=== PATIENT | female | born 1975 | race Caucasian/White ===

== ENCOUNTER 2018-12-30 01:12 | Inpatient (IN) ==
[2018-12-30] MEDS ORDERED: *HR* HYDROmorphone (PF) 1 MG/ML SYRINGE IVP ONE (03:33)
[2018-12-30] MEDS ORDERED: 0.9 % Sodium Chloride 1,000 ML IVC SCH ×2 (03:45→18:54)
[2018-12-30] MEDS: Ondansetron 4 MG/2 ML VIAL IVP PRN ×3 (03:59→20:43)
[2018-12-30] MEDS ORDERED: Ketorolac 15 MG/ML VIAL IVP PRN (04:30)
[2018-12-30 06:00] LABS: Basophils % 0.4 %; Eosinophils # 0.1 K/mcL (0.0-0.6); Eosinophils % 0.9 %; Hematocrit 43.5 % (35.3-44.9); Hemoglobin 14.4 g/dL (11.5-15.4); Immature Granulocytes % 0.2 % (0-4); Lymphocytes # 4.4 K/mcL (0.6-4.6); Lymphocytes % 44.5 %; Mean Corpuscular HGB Conc 33.1 g/dL (31.6-35.5); Mean Corpuscular Hemoglobin 30.4 pg (28.0-33.3); Mean Corpuscular Volume 91.8 fL (83.0-100.0); Monocytes # 0.7 K/mcL (0.0-1.3); Monocytes % 7.2 %; Neutrophils # 4.6 K/mcL (1.6-8.9); Platelet Count 243 K/mcL (140-400); Red Blood Count 4.74 M/mcL (3.82-4.97); Red Cell Distribution Width 13.1 % (11.5-14.5); Segmented Neutrophils % 46.8 %; White Blood Count 9.8 K/mcL (4.3-11.1)
[2018-12-30 06:16] LABS: BUN/Creatinine Ratio 24 (6-26); Blood Urea Nitrogen 13 mg/dL (6-20); Calcium 9.4 mg/dL (8.6-10.3); Carbon Dioxide 30 mEq/L (23-29); Chloride 107 mEq/L (98-107); Glucose 98 mg/dL (70-105); Osmolality,Calculated 292 (280-300); Sodium 141 mEq/L (136-145); eGFR For African Americans > 60 (> 60); eGFR For Non-African Americans > 60 (> 60)
[2018-12-30] MEDS ORDERED: Acetaminophen 325 MG TABLET PO ONE (07:52)
[2018-12-30] MEDS ORDERED: ALPRAZolam 0.25 MG TABLET PO PRN ×2 (07:57→18:54)
--- NOTE | 2018-12-30 08:21 | Acute Care Surgery H&P ---
<Jennifer Motley P - Last Filed: 12/30/18 10:19> Date of Encounter: 12/30/18 Time of Encounter: 08:00 Assessment and Plan (1) Intussusception of intestine Current Visit: No Status: Acute * This patient was presented with severe abdominal pain since yesterday, but she has had on and off pain for last couple of weeks,Pain is localized especially right lower quadrant,The patient does not have bowel movement for last 3 days and she has been constipated.The patient has nausea, minimal abdominal distention, does not have bowel movement but has passed gas, but no vomiting * CT abdomen and pelvis showed:Ileocecal intussusception measuring 5 cm in length. No lead point mass identified , No bowel obstruction. * Lab are with in normal range ( White cell count 9.8, hemoglobin 14.4, hematocrit 43.5, sodium 141, potassium 4.0, BUN 13, creatinine 0.5) Plan : * The assessment and plan as outlined above was discussed with the patient and/or family members who expressed understanding and agreement. All questions were answered. * Nothing by mouth from her latest morning * : Planned surgery later today: Ileocecectomy * Consent obtained History of Present Illness Chief complaint: Pain abdomen HPI: Ms. Reed is a 43 year old female presented to [facility] chief complain for severe abdominal pain. She stated that she has had pain abdomen on and off for last 3-4 weeks, but she suddenly developed sharp severe abdominal pain since yesterday. The pain was localized to the right lower quadrant of abdomen, 78/10 in intensity,excruciating in nature, associated with nausea but no vomiting. She also admitted slight abdominal distention and constipation. She further stated that she does not have any bowel movement for last 3 days and she is taking magnesium to help with constipation, but she has been passing gas frequently. She did not have any bowel surgery except hysterectomy in the past. She denied any fever,abdominal trauma, rash,complete loss of consciousness, vomiting, blood in stool or vomit . The patient does not have any significant systemic problem including heart problem, but she does admit mild shortness of breath and headache. CT abdomen and pelvis showed Ileocecal intussusception measuring 5 cm in length. No bowel obstruction. We have put her on nothing by mouth from this morning and planning to do surgery( ileocecectomy) later today. Past Med Surg Social Fam HX - Past Medical History Medical history: no medical history Additional medical history: states last seizure was 4 months ago Psychiatric history: anxiety, depression - Past Surgical History Surgical History: non-contributory, hysterectomy Additional surgical history: tubal ligation. Partial hysterectomy - Social History Smoking Status: Current every day smoker Packs per day: 1 1/2 Smokeless Tobacco Status: No Alcohol use: rarely Drug use: none - Family History Father Hx Family Cardiac Disorders: Yes (CHF) Hx Family Endocrine Disorder: Yes (Dm) Medications and Allergies ALPRAZolam [Xanax 0.25 MG Tablet] 0.5 mg PO BID PRN 08/21/18 [History] Albuterol Sulfate [Albuterol Inhaler] 0 puff IH Q4HR 08/21/18 [History] Magnesium Oxide [Magnesium] 400 mg PO BID 08/21/18 [History] Montelukast [Singulair] 10 mg PO DAILY #30 tablet 08/21/18 [Rx] MiraLAX 12/30/18 [History] Allergy/AdvReac Type Severity Reaction Status Date / Time hydromorphone [From Dilaudid] Allergy Itching Verified 12/30/18 04:34 oxycodone [Oxycodone] Allergy Hives Verified 08/21/18 14:14 Review of Systems All systems PM: The remainder of the systems were reviewed and are negative - Constitutional headache(s), weakness, no anorexia, no chills, no fever(s), no lethargy, no malaise, no night sweats - EENT Nose, mouth and throat: dry mouth, no dizziness, no sinus pain, no sore throat - Cardiovascular no chest pain, no chest pain at rest, no chest pain with activity, no leg edema, no lightheadedness, no orthopnea, no palpitations - Integumentary change in nails, no bleeding lesions - Neurological headache(s), no confusion, no convulsions, no dizziness, no restless legs, no syncope - Psychiatric anxiety, no confusion, no depression - Endocrine no deeping of the voice, no excessive sweating, no palpitations, no polydipsia - Allergic/Immunologic no tongue swelling, no itchy eyes, no uticaria, no wheezing, no lip swelling General Surgery Exam Initial Vital Signs Temp Pulse Resp BP Pulse Ox 98.6 F 86 16 141/82 95 12/30/18 02:52 12/30/18 02:52 12/30/18 02:52 12/30/18 02:52 12/30/18 02:52 - General physical appearance well developed, well nourished, no distress - Eyes PERRL, normal ocular movement - ENT normal nares, normal mucosa, no hearing loss, no congestion - Respiratory normal expansion, normal respiratory effort, clear to percussion, clear to auscultation - Cardiovascular Cardiovascular exam: Present: RRR, regular rhythm, no murmurs/rubs/gallops - Abdomen Abdomen general surgery: Present: bowel sounds present, soft, distended, tender. Absent: organomegaly, masses, guarding, rebound, rigid, peritoneal Abdominal Tenderness: Present: RLQ Hernia: Present: none - Integumentary Integumentary general surgery: Present: warm and dry - Neurologic Present: CN 2-12 grossly intact, normal coordination, normal sensation - Musculoskeletal Present: normal gait, normal posture - Psychiatric Psychiatric general surgery: Present: A&Ox3, appropriate, oriented to person, oriented to place, oriented to time, speech is normal, memory intact Results - Labs 12/30/18 05:37 12/30/18 05:37 Abnormal lab results Carbon Dioxide 30 mEq/L (23-29) H 12/30/18 05:37 0.55 mg/dL (0.60-1.20) L 12/30/18 05:37 Diabetes panel 12/30/18 Range/Units 05:37 Sodium 141 (136-145) mEq/L Potassium 4.0 (3.5-5.1) mEq/L Chloride 107 (98-107) mEq/L Carbon Dioxide 30 H (23-29) mEq/L BUN 13 (6-20) mg/dL Creatinine 0.55 L (0.60-1.20) mg/dL Glucose 98 (70-105) mg/dL Calcium 9.4 (8.6-10.3) mg/dL Calcium panel 12/30/18 Range/Units 05:37 Calcium 9.4 (8.6-10.3) mg/dL Pituitary panel 12/30/18 Range/Units 05:37 Sodium 141 (136-145) mEq/L Potassium 4.0 (3.5-5.1) mEq/L Chloride 107 (98-107) mEq/L Carbon Dioxide 30 H (23-29) mEq/L BUN 13 (6-20) mg/dL Creatinine 0.55 L (0.60-1.20) mg/dL Glucose 98 (70-105) mg/dL Calcium 9.4 (8.6-10.3) mg/dL Adrenal panel 12/30/18 Range/Units 05:37 Sodium 141 (136-145) mEq/L Potassium 4.0 (3.5-5.1) mEq/L Chloride 107 (98-107) mEq/L Carbon Dioxide 30 H (23-29) mEq/L BUN 13 (6-20) mg/dL Creatinine 0.55 L (0.60-1.20) mg/dL Glucose 98 (70-105) mg/dL Calcium 9.4 (8.6-10.3) mg/dL All other labs normal. - Imaging CT scan - abdomen: report reviewed <Duane Navarro - Last Filed: 12/30/18 13:41> Date of Encounter: 12/30/18 History of Present Illness HPI: Ms. Reed is a 43 year old female Review of Systems All systems PM: The remainder of the systems were reviewed and are negative General Surgery Exam Initial Vital Signs Temp Pulse Resp BP Pulse Ox 98.6 F 86 16 141/82 95 12/30/18 02:52 12/30/18 02:52 12/30/18 02:52 12/30/18 02:52 12/30/18 02:52 Results - Labs 12/30/18 05:37 12/30/18 05:37 Abnormal lab results Carbon Dioxide 30 mEq/L (23-29) H 12/30/18 05:37 0.55 mg/dL (0.60-1.20) L 12/30/18 05:37 Diabetes panel 12/30/18 Range/Units 05:37 Sodium 141 (136-145) mEq/L Potassium 4.0 (3.5-5.1) mEq/L Chloride 107 (98-107) mEq/L Carbon Dioxide 30 H (23-29) mEq/L BUN 13 (6-20) mg/dL Creatinine 0.55 L (0.60-1.20) mg/dL Glucose 98 (70-105) mg/dL Calcium 9.4 (8.6-10.3) mg/dL Calcium panel 12/30/18 Range/Units 05:37 Calcium 9.4 (8.6-10.3) mg/dL Pituitary panel 12/30/18 Range/Units 05:37 Sodium 141 (136-145) mEq/L Potassium 4.0 (3.5-5.1) mEq/L Chloride 107 (98-107) mEq/L Carbon Dioxide 30 H (23-29) mEq/L BUN 13 (6-20) mg/dL Creatinine 0.55 L (0.60-1.20) mg/dL Glucose 98 (70-105) mg/dL Calcium 9.4 (8.6-10.3) mg/dL Adrenal panel 12/30/18 Range/Units 05:37 Sodium 141 (136-145) mEq/L Potassium 4.0 (3.5-5.1) mEq/L Chloride 107 (98-107) mEq/L Carbon Dioxide 30 H (23-29) mEq/L BUN 13 (6-20) mg/dL Creatinine 0.55 L (0.60-1.20) mg/dL Glucose 98 (70-105) mg/dL Calcium 9.4 (8.6-10.3) mg/dL All other labs normal. - Attending Attestation I examined this patient and my medical decision-making was reviewed with the Resident Physician. I agree with the documented findings, disposition and treatment plan as described except to the extent set forth below. The patient is seen and evaluated on morning rounds. She is had recurrent right lower quadrant pain as well as constipation issues for some time. Today she complains bitterly of right lower quadrant pain and has a physical examination suggestive of inflammatory process in the right lower quadrant. CAT scan demonstrates a 5 cm intussusception with surrounding inflammatory fluid. I have recommended excisional therapy with segmental resection of the intussusception and primary anastomosis. I discussed the risks and benefits of surgery with her she understands this and wishes to proceed. Next I personally reviewed the CAT scan and findings are consistent with distal small bowel intussusception and physical examination correlates well with CAT scan findings. Duane Navarro MD FACS
[2018-12-30 08:56] LABS: Prothrombin Time 11.4 Seconds (9.4-12.1)
[2018-12-30] MEDS ORDERED: cefOXitin 1,000 MG, Sodium Chloride IRRigation 1,000 ML IR ONE ×2 (09:00→18:54)
[2018-12-30] MEDS ORDERED: Pantoprazole 40 MG VIAL IVP SCH (09:00)
[2018-12-30] MEDS ORDERED: *HR* FentaNYL (PF) 100 MCG/2 ML VIAL ONE (15:51)
[2018-12-30] MEDS ORDERED: *HR* Propofol 200 MG/20 ML VIAL IVP ONE (15:51)
[2018-12-30] MEDS ORDERED: *HR* Midazolam HCl 2 MG/2 ML VIAL ONE (15:51)
[2018-12-30] MEDS ORDERED: CefOXitin 1,000 MG VIAL ONE (15:52)
[2018-12-30] MEDS ORDERED: Ipratropium/Albuterol Neb 3 ML IH ONE (15:52)
--- NOTE | 2018-12-30 15:52 | Anesthesia Evaluation PreOp ---
Date of Encounter: 12/30/18 Time of Encounter: 15:49 - Past History Planned Operation: Ileocecectomy re: intestinal intussusception Pulmonary History: Smoker (1-1/2ppd x 25yrs) [employer] History: Seizures (Last a couple weeks ago. NOT medicated b/c "I don't have them very often"), Other (Anxiety/Depression) Other Medical History: Renal (Medullary sponge kidney) Anesthesia History: No Prior Anesthetic Complications, Past Anesthesia (Tubal, Partial Hyster) Alcohol Use: rarely Drug use: none Medications and Allergies ALPRAZolam [Xanax 0.25 MG Tablet] 0.5 mg PO BID PRN 08/21/18 [History] Albuterol Sulfate [Albuterol Inhaler] 0 puff IH Q4HR 08/21/18 [History] Magnesium Oxide [Magnesium] 400 mg PO BID 08/21/18 [History] Montelukast [Singulair] 10 mg PO DAILY #30 tablet 08/21/18 [Rx] MiraLAX 12/30/18 [History] Allergy/AdvReac Type Severity Reaction Status Date / Time hydromorphone [From Dilaudid] Allergy Itching Verified 12/30/18 04:34 oxycodone [Oxycodone] Allergy Hives Verified 08/21/18 14:14 - Meds/Allergy Pre-op Review Medications Reviewed: Yes Allergies Reviewed: Yes (CAN take Dilaudid, but needs Benadryl with it) Beta Blockers on Current Med List: Yes Anesthesia Results - Labs 12/30/18 05:37 12/30/18 05:37 Laboratory Results Laboratory Tests 12/30/18 12/30/18 05:37 08:22 PT 11.4 INR 1.0 Est GFR (Non-Af Amer) > 60 - Imaging Additional studies: CT/CT abd pelvis wo no iv no oral IMPRESSION: Ileocecal intussusception measuring 5 cm in length. No lead point mass identified on this noncontrast exam. No bowel obstruction. Normal appendix. D/ / Simon Rodriguez / Simon Rodriguez Interpreting Provider: Simon Rodriguez Anesthesia Exam Vital Signs Temp Pulse Resp BP Pulse Ox 12/30/18 10:52 98.3 F 70 14 120/77 92 12/30/18 07:03 98.3 F 65 15 106/68 92 12/30/18 03:38 95 12/30/18 02:52 98.6 F 86 16 141/82 95 Intake and Output 12/30/18 12/30/18 12/30/18 07:59 15:59 23:59 Output Total 100 / 100 Balance -100 / -100 Output: Emesis 100 / 100 Other: # Voids 1 1 Weight 55.7 kg Patient Weight 12/30/18 23:59 Weight 55.7 kg Height: 5'7" Weight: 122# BMI= 19 NPO (# of Hours): MNoc - HEENT Pupil (Motor): Pupils equal, EOMI Mallampati: II Teeth: Edentulous Oral Opening: Greater than 3 - [employer] LOC: Oriented [employer] Motor: Normal RUE, Normal LUE, Normal RLE, Normal LLE, Normal Face [employer] Sensory: Normal: RUE, LUE, RLE, LLE, Face - Cardiac Rhythm: Regular Murmur: None - Pulmonary Breath Sounds: bilateral Clear Respiratory Effort: Symmetrical Anesthesia Assess/Plan ASA Score: 3 Level of consciousness: Cooperative, Oriented Anesthetic Plan: General Regional Nerve Block Plan: Interscalene, Axillary Monitoring Plan: Standard Monitors Recovery Plan: PACU Anes Supervising Prov Stmt: Pt seen/evluated, R&B discussed, questions answered and consent obtained. Dennise Kwan MD
[2018-12-30] MEDS ORDERED: Lidocaine -MPF 2% 2 ML VIAL ONE (15:53)
[2018-12-30] MEDS ORDERED: Ondansetron 4 MG/2 ML VIAL ONE (15:53)
[2018-12-30] MEDS ORDERED: *HR* Succinylcholine 200 MG/10 ML VIAL IVP ONE (15:53)
[2018-12-30] MEDS ORDERED: *HR* Rocuronium Bromide 50 MG/5 ML VIAL ONE (15:53)
[2018-12-30] MEDS ORDERED: Dexamethasone 4 MG/ML VIAL ONE (15:53)
[2018-12-30] MEDS ORDERED: Ipratropium/Albuterol Neb 3 ML ONE (15:54)
[2018-12-30] MEDS ORDERED: Acetaminophen IV 1,000 MG/100 ML INFUS..BTL ONE (16:11)
[2018-12-30] MEDS ORDERED: Famotidine 20 MG/2 ML VIAL ONE (16:11)
[2018-12-30] MEDS ORDERED: CefOXitin 2,000 MG VIAL ONE (16:58)
[2018-12-30] MEDS ORDERED: Neostigmine Methylsulfate 3 MG/3 ML SYRINGE ONE (17:05)
[2018-12-30] MEDS ORDERED: Ketorolac 30 MG/ML VIAL ONE (17:32)
--- NOTE | 2018-12-30 17:45 | Operative Note ---
Date of procedure: 12/30/18 Pre-op diagnosis: Intussusception, ileocecal Post-op diagnosis: same Procedure: Ileocecal colectomy (resection of the distal small bowel, cecum and appendix with primary anastomosis) Anesthesia: EDDI Surgeon: Duane Navarro Was there an assistant customer service manager present: Yes Advertising Assistant Manager: Michelle Galvin Estimated blood loss (cc): 10 Specimen: Ileocecal colectomy Condition: stable Disposition: PACU Procedure in Detail: After informed consent the patients taking major operative suite placed supine position given adequate general anesthetic. The abdomen is prepped and draped in sterile fashion utilizing ChloraPrep and standard draping techniques. Timeout was taken and the patient is identified. I made a vertical midline incision just below the umbilicus and around the umbilicus and the colon was stool-filled. The intussusception in the ileocecal valve area had reduced. There was no area of dense adhesions down to her hysterectomy site from the distal ileum about 10-15 cm from the ileocecal valve. Once I lysed the adhesions in the pelvis and mobilize this area I was not happy with the appearance of the bowel and decided to resect this. I divided the ileum just proximal to the area of adhesions in the pelvis taking about 15-20 cm of distal ileum. I divided the mid descending colon just above the cecum. Both divisions were with FAIHT area mesentery was divided between clamps and hemostatic ligatures of 0 silk. I performed a functional end-to-end anastomosis with FAITH and closing the enterotomy with a TA 60. I circumferentially reinforced the staple line with interrupted 3-0 silk and closed the opening in the mesentery with interrupted 2-0 silk. This gave an excellent and well vascularized technical result with a widely patent anastomosis. The abdomen was irrigated with copious amounts of antibiotic containing solution. Midline was closed with looped 0 PDS. Skin was closed with interrupted 2-0 Vicryl's stitches and skin clips. She tolerated the procedure well.
[2018-12-30] MEDS ORDERED: *HR* FentaNYL (PF) 100 MCG/2 ML VIAL IVP PRN (17:49)
[2018-12-30] MEDS ORDERED: *HR* Morphine 2 MG/ML SYRINGE IVP PRN (17:49)
[2018-12-30] MEDS ORDERED: traMADol 50 MG TABLET PO PRN (17:52)
[2018-12-30] MEDS ORDERED: Ringers Solution, Lactated 1,000 ML ONE (17:57)
[2018-12-30] MEDS ORDERED: *HR* Promethazine 25 MG/ML VIAL ONE (17:57)
[2018-12-30] MEDS ORDERED: *HR* Heparin 5,000 UNIT/ML VIAL SQ SCH (18:00)
[2018-12-30] MEDS: *HR* Promethazine 25 MG/ML VIAL IVP PRN ×2 (18:00→18:24)
--- NOTE | 2018-12-30 18:34 | Anesthesia Evaluation Post Op ---
Date of Encounter: 12/30/18 Time of Encounter: 18:33 - Vital Signs Vital Signs: Last Vital Signs Temp 98.6 F 12/30/18 18:19 Pulse 57 12/30/18 18:19 Resp 14 12/30/18 18:19 BP 108/67 12/30/18 18:19 Pulse Ox 96 12/30/18 18:19 - Lungs Lungs: Clear Ascult./Percussion - Airway Airway: Non-obstructed - Cardiovascular Regular Rate - Mental Status Mental Status: Alert & Oriented, Answers Appropriately - Pain Pain Scale: 0 Pain Scale used: Swartz-Den (Faces) - Nausea Vomiting Nausea Vomiting: Not Present - Hydration Hydration: Ice chips - Discharge PostOp Status: Transfer Patient to floor
[2018-12-30] MEDS: Ketorolac 15 MG/ML VIAL IVP PRN (20:42)
[2018-12-30] MEDS: *HR* HYDROmorphone 2 MG/ML SYRINGE IVP PRN (23:50)
[2018-12-31] MEDS ORDERED: cefOXitin 1,000 MG in 0.9 % Sodium Chloride Mini Bag 100 ML IVPB SCH
[2018-12-31] MEDS: Ketorolac 15 MG/ML VIAL IVP PRN (04:52)
[2018-12-31 06:06] LABS: Basophils % 0.2 %; Hematocrit 39.7 % (35.3-44.9); Immature Granulocytes % 0.5 % (0-4); Lymphocytes # 1.2 K/mcL (0.6-4.6); Lymphocytes % 7.4 %; Mean Corpuscular HGB Conc 32.7 g/dL (31.6-35.5); Mean Corpuscular Hemoglobin 30.4 pg (28.0-33.3); Mean Platelet Volume 10.6 fL (9.4-12.4); Monocytes # 0.7 K/mcL (0.0-1.3); Monocytes % 4.4 %; Neutrophils # 13.6 K/mcL (1.6-8.9); Platelet Count 229 K/mcL (140-400); Red Blood Count 4.27 M/mcL (3.82-4.97); Segmented Neutrophils % 87.5 %
[2018-12-31 06:08] LABS: White Blood Count 15.5 K/mcL (4.3-11.1)
[2018-12-31 06:23] LABS: BUN/Creatinine Ratio 18 (6-26); Blood Urea Nitrogen 9 mg/dL (6-20); Calcium 8.5 mg/dL (8.6-10.3); Carbon Dioxide 28 mEq/L (23-29); Chloride 104 mEq/L (98-107); Glucose 107 mg/dL (70-105); Magnesium 1.5 mg/dL (1.6-2.6); Osmolality,Calculated 285 (280-300); Phosphorous 4.1 mg/dL (2.7-4.5); Potassium 3.9 mEq/L (3.5-5.1); Sodium 138 mEq/L (136-145); eGFR For African Americans > 60 (> 60); eGFR For Non-African Americans > 60 (> 60)
[2018-12-31] MEDS: Pantoprazole 40 MG VIAL IVP SCH (08:46)
--- NOTE | 2018-12-31 08:48 | AcuteCareSurgery Progress Note ---
<Jennifer Motley P - Last Filed: 12/31/18 13:31> Date of Encounter: 12/31/18 Time of Encounter: 08:30 - Assessment and Plan (1) Intussusception of intestine Current Visit: Yes Status: Acute * This patient was presented with severe abdominal pain , constipation, abdominal distension. * CT abdomen and pelvis showed:Ileocecal intussusception measuring 5 cm in length. No lead point mass identified , No bowel obstruction. * Today is 1st postoperative day : Ileocecal colectomy (resection of the distal small bowel, cecum and appendix with primary anastomosis 12/30/2018 * Patient is gradually getting better, pain is less, and no post op complication * Post OP labs : WBC 15.5, hemoglobin 13, sodium 138, potassium 3.9, renal function normal Plan : * Will gradually advance diet as she tolerated, start from ice chips * Activity as she tolerated * Monitor intake and output * Watch for wound site infection * Adequate pain management, * Trend labs Subjective Patient reports: no new complaints, feels better, still having pain, no bowel movement Narrative: Today is first postoperative day after Ileocecal colectomy (resection of the distal small bowel, cecum and appendix with primary anastomosis,) patient is progressively getting better, no new complaints. Pain is gradually getting less, she does not have any bowel movement yet, she denied vomiting. Her vitals are stable; she is afebrile pulse 76 per minute regular, blood pressure 101/63, saturation 94% room air. It has been just more than 12 hours after surgery and she is starting from ice chips and we will plan to gradually advance diet as she tolerated Objective Vital Signs - Last 8 Hours Temp Pulse Resp BP Pulse Ox 12/31/18 06:53 98.8 F 76 16 101/63 94 12/31/18 04:47 98.1 F 61 16 115/54 95 Intake and Output 12/30/18 12/31/18 12/31/18 23:59 07:59 15:59 Intake Total 1000 / 1000 Output Total 600 / 600 Balance 400 / 400 Intake: IV Fluids 1000 / 1000 0.9 % Sodium Chloride 1,000 ML 1000 / 1000 @ 100 mls/hr IVC .Q10H [facility] Rx#: [id number] Output: Urine 600 / 600 Other: # Bowel Movements 0 Blood Glucose* 107 - General physical appearance well developed, well nourished, no distress - Eyes PERRL, normal ocular movement - ENT normal nares, normal mucosa, no congestion - Neck Neck exam: no masses, no bruits, trachea midline, no lymphadectomy - Respiratory normal expansion, normal respiratory effort, clear to percussion - Cardiovascular Cardiovascular exam: Present: RRR, regular rhythm, no murmurs/rubs/gallops - Abdomen Abdomen: Present: soft, distended, tender. Absent: organomegaly, guarding, rigid, peritoneal - Incision Incision: Present: clean and dry, intact - Integumentary no rash - Neurologic CN 2-12 grossly intact, normal coordination, normal sensation - Musculoskeletal normal gait, normal posture - Psychiatric oriented to time, oriented to person, oriented to place, speech is normal - Labs 12/31/18 04:52 12/31/18 04:52 Diabetes panel 12/31/18 Range/Units 04:52 Sodium 138 (136-145) mEq/L Potassium 3.9 (3.5-5.1) mEq/L Chloride 104 (98-107) mEq/L Carbon Dioxide 28 (23-29) mEq/L BUN 9 (6-20) mg/dL Creatinine 0.49 L (0.60-1.20) mg/dL Glucose 107 H (70-105) mg/dL Calcium 8.5 L (8.6-10.3) mg/dL Calcium panel 12/31/18 Range/Units 04:52 Calcium 8.5 L (8.6-10.3) mg/dL Phosphorus 4.1 (2.7-4.5) mg/dL Pituitary panel 12/31/18 Range/Units 04:52 Sodium 138 (136-145) mEq/L Potassium 3.9 (3.5-5.1) mEq/L Chloride 104 (98-107) mEq/L Carbon Dioxide 28 (23-29) mEq/L BUN 9 (6-20) mg/dL Creatinine 0.49 L (0.60-1.20) mg/dL Glucose 107 H (70-105) mg/dL Calcium 8.5 L (8.6-10.3) mg/dL Adrenal panel 12/31/18 Range/Units 04:52 Sodium 138 (136-145) mEq/L Potassium 3.9 (3.5-5.1) mEq/L Chloride 104 (98-107) mEq/L Carbon Dioxide 28 (23-29) mEq/L BUN 9 (6-20) mg/dL Creatinine 0.49 L (0.60-1.20) mg/dL Glucose 107 H (70-105) mg/dL Calcium 8.5 L (8.6-10.3) mg/dL Consult Discharge Plan - Plan Referrals: Vivian Borrego, RN [facility] [Primary Care Provider] - <Richie Schwartz - Last Filed: 01/01/19 05:38> Date of Encounter: 12/31/18 Objective Vital Signs - Last 8 Hours Temp Pulse Resp BP Pulse Ox 01/01/19 03:24 98.5 F 87 16 119/61 96 12/31/18 22:46 98.8 F 75 16 109/65 95 Intake and Output 12/31/18 12/31/18 01/01/19 15:59 23:59 07:59 Intake Total 1000 / 2000 Output Total 0 / 600 Balance 0 / 1400 1000 / 1400 Intake: IV Fluids 1000 / 2000 0.9 % Sodium Chloride 1,000 ML 1000 / 1000 @ 100 mls/hr IVC .Q10H [facility] Rx#: [id number] Output: Urine 0 / 600 Other: Meal NPO for lunch # Voids 2 Weight 58.2 kg Blood Glucose* 89 90 82 Patient Weight 01/01/19 23:59 Weight 58.2 kg - Labs 01/01/19 00:28 01/01/19 00:28 Diabetes panel 12/31/18 01/01/19 Range/Units 04:52 00:28 Sodium 138 138 (136-145) mEq/L Potassium 3.9 3.4 L (3.5-5.1) mEq/L Chloride 104 105 (98-107) mEq/L Carbon Dioxide 28 27 (23-29) mEq/L BUN 9 9 (6-20) mg/dL Creatinine 0.49 L 0.48 L (0.60-1.20) mg/dL Glucose 107 H 76 (70-105) mg/dL Calcium 8.5 L 8.2 L (8.6-10.3) mg/dL Calcium panel 12/31/18 01/01/19 Range/Units 04:52 00:28 Calcium 8.5 L 8.2 L (8.6-10.3) mg/dL Phosphorus 4.1 2.3 L (2.7-4.5) mg/dL Pituitary panel 12/31/18 01/01/19 Range/Units 04:52 00:28 Sodium 138 138 (136-145) mEq/L Potassium 3.9 3.4 L (3.5-5.1) mEq/L Chloride 104 105 (98-107) mEq/L Carbon Dioxide 28 27 (23-29) mEq/L BUN 9 9 (6-20) mg/dL Creatinine 0.49 L 0.48 L (0.60-1.20) mg/dL Glucose 107 H 76 (70-105) mg/dL Calcium 8.5 L 8.2 L (8.6-10.3) mg/dL Adrenal panel 12/31/18 01/01/19 Range/Units 04:52 00:28 Sodium 138 138 (136-145) mEq/L Potassium 3.9 3.4 L (3.5-5.1) mEq/L Chloride 104 105 (98-107) mEq/L Carbon Dioxide 28 27 (23-29) mEq/L BUN 9 9 (6-20) mg/dL Creatinine 0.49 L 0.48 L (0.60-1.20) mg/dL Glucose 107 H 76 (70-105) mg/dL Calcium 8.5 L 8.2 L (8.6-10.3) mg/dL - Attending Attestation I examined this patient and my medical decision-making was reviewed with the Resident Physician. I agree with the documented findings, disposition and treatment plan as described except to the extent set forth below. I reviewed the above assessment and evaluation and agree with the above plan. Await for return of bowel function. Ice chips for now. Encourage out of bed and ambulation.
[2018-12-31] MEDS: *HR* HYDROmorphone 2 MG/ML SYRINGE IVP PRN ×4 (08:54→22:37)
[2018-12-31] MEDS: Ondansetron 4 MG/2 ML VIAL IVP PRN (08:54)
[2018-12-31] MEDS: 0.9 % Sodium Chloride 1,000 ML IVC SCH ×2 (11:18→21:38)
[2019-01-01] MEDS: Ketorolac 15 MG/ML VIAL IVP PRN ×4 (01:23→23:37)
[2019-01-01 01:50] LABS: Basophils % 0.2 %; Eosinophils % 0.3 %; Hematocrit 36.8 % (35.3-44.9); Hemoglobin 12.1 g/dL (11.5-15.4); Immature Granulocytes % 0.3 % (0-4); Lymphocytes % 25.5 %; Mean Corpuscular HGB Conc 32.9 g/dL (31.6-35.5); Mean Corpuscular Hemoglobin 30.6 pg (28.0-33.3); Mean Corpuscular Volume 93.2 fL (83.0-100.0); Mean Platelet Volume 10.5 fL (9.4-12.4); Monocytes # 0.7 K/mcL (0.0-1.3); Monocytes % 5.7 %; Neutrophils # 7.9 K/mcL (1.6-8.9); Platelet Count 219 K/mcL (140-400); Red Blood Count 3.95 M/mcL (3.82-4.97); Red Cell Distribution Width 13.2 % (11.5-14.5); White Blood Count 11.6 K/mcL (4.3-11.1)
[2019-01-01 02:35] LABS: BUN/Creatinine Ratio 19 (6-26); Blood Urea Nitrogen 9 mg/dL (6-20); Calcium 8.2 mg/dL (8.6-10.3); Carbon Dioxide 27 mEq/L (23-29); Chloride 105 mEq/L (98-107); Glucose 76 mg/dL (70-105); Magnesium 1.7 mg/dL (1.6-2.6); Osmolality,Calculated 283 (280-300); Phosphorous 2.3 mg/dL (2.7-4.5); Potassium 3.4 mEq/L (3.5-5.1); Sodium 138 mEq/L (136-145); eGFR For African Americans > 60 (> 60); eGFR For Non-African Americans > 60 (> 60)
[2019-01-01] MEDS: *HR* HYDROmorphone 2 MG/ML SYRINGE IVP PRN (04:43)
[2019-01-01] MEDS ORDERED: D5% in Water 1,000 ML IVC PRN (07:15)
[2019-01-01] MEDS ORDERED: Dextrose Gel 15 GM/37.5 ML TUBE PO PRN ×2 (07:15)
[2019-01-01] MEDS ORDERED: *HR* Dextrose 50 % in Water (Syg) 50 ML SYRINGE IVP PRN (07:15)
[2019-01-01] MEDS ORDERED: Fluticasone Propionate Nasal 50 MCG/SPRAY BOTTLE NS PRN (08:51)
[2019-01-01] MEDS ORDERED: NON-FORMULARY MEDICATION 1 EACH EACH (Glycopyrrolate/Formoterol Fum [Bevespi Aerosphere In IH SCH (09:00)
--- NOTE | 2019-01-01 09:13 | AcuteCareSurgery Progress Note ---
<BaMaye Fabian - Last Filed: 01/01/19 09:11> Date of Encounter: 01/01/19 Time of Encounter: 07:55 - Assessment and Plan (1) Intussusception of intestine Current Visit: Yes Status: Acute Date of procedure: 12/30/18 Pre-op diagnosis: Intussusception, ileocecal Post-op diagnosis: same Procedure: Ileocecal colectomy (resection of the distal small bowel, cecum and appendix with primary anastomosis) Anesthesia: ALISHAA Surgeon: Duane Navarro POD #2 as above. Pathology remains pending. Overall, she is recovering as expected. She does report cough and feeling fevered or chills. She does have a history of smoking. Plan: Continue supportive care and discomfort management while awaiting full return of bowel function Continue G.I. and DVT prophylaxis consult respiratory therapy for a cappella, scheduled duonebs in the setting of her smoking history and her normal medication is non-formulary, aggressive pulmonary toileting Incentive spirometry 10 times every hour while awake Out of bed to chair TID, do not offer meal trays while in the bed Activity as tolerated, ambulate in the halls at least TID Apply ice 20 minutes on 20 minutes off as needed scheduled Toradol, PRN sublingual oxycodone for breakthrough pain continue to closely monitor repeat a.m. labs (2) Smoking history Current Visit: Yes Status: Chronic Smoking cessation education aggressive pulmonary toileting Chest x-ray for productive cough Continue to closely monitor (3) Productive cough Current Visit: Yes Status: Acute See above (4) Depression Current Visit: No Status: Chronic Continue to monitor continue home medications Qualifiers: Depression Type: unspecified Qualified Code(s): F32.9 - Major depressive disorder, single episode, unspecified (5) History of seizures Current Visit: No Status: Chronic Continue to closely monitor (6) Electrolyte imbalance Current Visit: Yes Status: Acute Replete lytes as indicated K [place] given today Subjective Patient reports: no new complaints, feels better, still having pain, pain is less, tolerating liquids well, flatus, no bowel movement, fever (Feels fever and chills) Narrative: Reports urinary incontinence alternating with difficulty initiating stream of urine. Denies burning her blood. Objective Vital Signs - Last 8 Hours Temp Pulse Resp BP Pulse Ox 01/01/19 06:35 99.1 F 78 16 104/59 97 01/01/19 03:24 98.5 F 87 16 119/61 96 Intake and Output 12/31/18 01/01/19 01/01/19 23:59 07:59 15:59 Intake Total 999 / 1999 Balance 1000 / 1400 Intake: IV Fluids 999 / 1999 0.9 % Sodium Chloride 1,000 ML 1000 / 1000 @ 100 mls/hr IVC .Q10H [facility] Rx#: [id number] Other: # Voids 2 Weight 58.2 kg Blood Glucose* 90 82 Patient Weight 01/01/19 23:59 Weight 58.2 kg - General physical appearance no distress, other (Up in room) - ENT atraumatic, normocephalic - Neck Neck exam: trachea midline - Respiratory other (Decreased respiratory effort. Reports productive cough) - Cardiovascular Cardiovascular exam: Present: RRR - Abdomen Abdomen: Present: bowel sounds present, soft, tender (Expected postoperative) - Incision Incision: Present: clean and dry, intact - Integumentary no rash - Neurologic normal coordination, normal sensation - Musculoskeletal normal gait, normal posture - Psychiatric oriented to time, oriented to person, oriented to place, speech is normal, memory intact - Labs 01/01/19 00:28 01/01/19 00:28 Diabetes panel 01/01/19 Range/Units 00:28 Sodium 138 (136-145) mEq/L Potassium 3.4 L (3.5-5.1) mEq/L Chloride 105 (98-107) mEq/L Carbon Dioxide 27 (23-29) mEq/L BUN 9 (6-20) mg/dL Creatinine 0.48 L (0.60-1.20) mg/dL Glucose 76 (70-105) mg/dL Calcium 8.2 L (8.6-10.3) mg/dL Calcium panel 01/01/19 Range/Units 00:28 Calcium 8.2 L (8.6-10.3) mg/dL Phosphorus 2.3 L (2.7-4.5) mg/dL Pituitary panel 01/01/19 Range/Units 00:28 Sodium 138 (136-145) mEq/L Potassium 3.4 L (3.5-5.1) mEq/L Chloride 105 (98-107) mEq/L Carbon Dioxide 27 (23-29) mEq/L BUN 9 (6-20) mg/dL Creatinine 0.48 L (0.60-1.20) mg/dL Glucose 76 (70-105) mg/dL Calcium 8.2 L (8.6-10.3) mg/dL Adrenal panel 01/01/19 Range/Units 00:28 Sodium 138 (136-145) mEq/L Potassium 3.4 L (3.5-5.1) mEq/L Chloride 105 (98-107) mEq/L Carbon Dioxide 27 (23-29) mEq/L BUN 9 (6-20) mg/dL Creatinine 0.48 L (0.60-1.20) mg/dL Glucose 76 (70-105) mg/dL Calcium 8.2 L (8.6-10.3) mg/dL Consult Discharge Plan - Plan Referrals: Vivian Borrego CNP [Primary Care Provider] - <Duane Navarro - Last Filed: 01/01/19 18:08> Date of Encounter: 01/01/19 Objective Vital Signs - Last 8 Hours Temp Pulse Resp BP Pulse Ox 01/01/19 15:40 17 96 01/01/19 14:21 98.4 F 87 16 100/61 95 01/01/19 11:26 98.7 F 97 18 106/61 85 01/01/19 10:48 16 97 Intake and Output 01/01/19 01/01/19 01/01/19 07:59 15:59 23:59 Intake Total 1240 / 1240 Balance 1240 / 1240 Intake: IV Fluids 1000 / 1000 0.9 % Sodium Chloride 1,000 ML 1000 / 1000 @ 100 mls/hr IVC .Q10H [facility] Rx#: [id number] Oral 240 / 240 Other: Meal Lunch # Voids 2 Weight 58.2 kg Blood Glucose* 82 Patient Weight 01/01/19 23:59 Weight 58.2 kg - Labs 01/01/19 00:28 01/01/19 00:28 Diabetes panel 01/01/19 Range/Units 00:28 Sodium 138 (136-145) mEq/L Potassium 3.4 L (3.5-5.1) mEq/L Chloride 105 (98-107) mEq/L Carbon Dioxide 27 (23-29) mEq/L BUN 9 (6-20) mg/dL Creatinine 0.48 L (0.60-1.20) mg/dL Glucose 76 (70-105) mg/dL Calcium 8.2 L (8.6-10.3) mg/dL Calcium panel 01/01/19 Range/Units 00:28 Calcium 8.2 L (8.6-10.3) mg/dL Phosphorus 2.3 L (2.7-4.5) mg/dL Pituitary panel 01/01/19 Range/Units 00:28 Sodium 138 (136-145) mEq/L Potassium 3.4 L (3.5-5.1) mEq/L Chloride 105 (98-107) mEq/L Carbon Dioxide 27 (23-29) mEq/L BUN 9 (6-20) mg/dL Creatinine 0.48 L (0.60-1.20) mg/dL Glucose 76 (70-105) mg/dL Calcium 8.2 L (8.6-10.3) mg/dL Adrenal panel 01/01/19 Range/Units 00:28 Sodium 138 (136-145) mEq/L Potassium 3.4 L (3.5-5.1) mEq/L Chloride 105 (98-107) mEq/L Carbon Dioxide 27 (23-29) mEq/L BUN 9 (6-20) mg/dL Creatinine 0.48 L (0.60-1.20) mg/dL Glucose 76 (70-105) mg/dL Calcium 8.2 L (8.6-10.3) mg/dL - Attending Attestation I have personally performed a face to face evaluation on this patient. I have reviewed and agree with the care plan. History and Exam by me shows: The patient is seen and evaluated on morning rounds with the acute care surgery team. Her preoperative pain is gone. She had a great deal of difficulty with bowel movements prior to surgery. She has good bowel sounds today and we will advance her diet. She has some dysuria and this will be investigated with urin alysis. Duane Navarro MD FACS
[2019-01-01] MEDS ORDERED: Potassium Phosphate 44 MEQ in 0.9 % Sodium Chloride 250 ML IVPB ONE (09:20)
[2019-01-01] MEDS: Pantoprazole 40 MG VIAL IVP SCH (09:38)
[2019-01-01] MEDS: Ipratropium/Albuterol Neb 3 ML IH SCH ×3 (10:45→22:06)
[2019-01-01] MEDS: 0.9 % Sodium Chloride 1,000 ML IVC SCH (11:33)
[2019-01-01 12:04] LABS: Bilirubin,Urine Negative (Negative); Blood,Urine Small (Negative); Clarity,Urine Clear (Clear); Color,Urine Yellow (Yellow); Glucose,Urine (UA) Normal (Normal); Ketones,Urine 80 mg/dL (Negative); Leukocyte Esterase,Urine Negative (Negative); Nitrite,Urine Negative (Negative); Protein,Urine Negative (Neg-Trace); Specific Gravity,Urine 1.012 (1.010-1.025); Urobilinogen,Urine Normal (Normal)
[2019-01-01 12:06] LABS: Bacteria,Urine None Seen per hpf (None-Few); Hyaline Casts,Urine None Seen per lpf (None-Few); Squamous Epithelial Cell,Urine Many per lpf (None-Few)
[2019-01-01] MEDS: OXYCODONE Oral CONC 10 MG/0.5 ML ORAL.SYG SL PRN ×2 (15:53→19:16)
[2019-01-01] MEDS: Nitrofurantoin (BID) 100 MG CAPSULE PO SCH (15:53)
[2019-01-01] MEDS ORDERED: Ipratropium/Albuterol Neb 3 ML IH PRN (22:22)
[2019-01-02] MEDS: OXYCODONE Oral CONC 10 MG/0.5 ML ORAL.SYG SL PRN ×3 (04:52→20:59)
[2019-01-02 05:33] LABS: Basophils % 0.1 %; Eosinophils # 0.1 K/mcL (0.0-0.6); Hematocrit 33.9 % (35.3-44.9); Immature Granulocytes % 0.1 % (0-4); Lymphocytes # 1.7 K/mcL (0.6-4.6); Lymphocytes % 22.1 %; Mean Corpuscular HGB Conc 32.4 g/dL (31.6-35.5); Mean Corpuscular Hemoglobin 30.1 pg (28.0-33.3); Mean Corpuscular Volume 92.6 fL (83.0-100.0); Mean Platelet Volume 10.2 fL (9.4-12.4); Monocytes # 0.8 K/mcL (0.0-1.3); Monocytes % 9.5 %; Neutrophils # 5.3 K/mcL (1.6-8.9); Platelet Count 211 K/mcL (140-400); Red Blood Count 3.66 M/mcL (3.82-4.97); Segmented Neutrophils % 67.2 %; White Blood Count 7.9 K/mcL (4.3-11.1)
[2019-01-02 05:54] LABS: BUN/Creatinine Ratio 22 (6-26); Blood Urea Nitrogen 10 mg/dL (6-20); Calcium 8.5 mg/dL (8.6-10.3); Carbon Dioxide 29 mEq/L (23-29); Chloride 102 mEq/L (98-107); Glucose 94 mg/dL (70-105); Magnesium 1.7 mg/dL (1.6-2.6); Osmolality,Calculated 287 (280-300); Phosphorous 2.8 mg/dL (2.7-4.5); Potassium 3.1 mEq/L (3.5-5.1); Sodium 139 mEq/L (136-145); eGFR For African Americans > 60 (> 60); eGFR For Non-African Americans > 60 (> 60)
[2019-01-02] MEDS: Ketorolac 15 MG/ML VIAL IVP PRN (06:55)
--- NOTE | 2019-01-02 08:16 | AcuteCareSurgery Progress Note ---
<Jennifer Motley P - Last Filed: 01/02/19 14:49> Date of Encounter: 01/02/19 Time of Encounter: 08:00 - Assessment and Plan (1) Intussusception of intestine Current Visit: Yes Status: Acute * This patient was presented with severe abdominal pain , constipation, abdominal distension.The CT abdomen and pelvis showed:Ileocecal intussuscept ion measuring 5 cm in length, No bowel obstruction. * Today is 3rd postoperative day : Ileocecal colectomy (resection of the distal small bowel, cecum and appendix with primary anastomosis 12/30/2018 * Patient is gradually getting better, pain is less, and no post op complication * Post OP labs : WBC 7.9, hemoglobin 11, sodium 139, potassium 3.1, renal function normal Plan : * Will gradually advance diet as she tolerated, start Liquid diet. * Potassium supplement * Spirometry, pulmonary toileting * Activity as she tolerated * Monitor intake and output * Watch for wound site infection * Adequate pain management, * Trend labs Subjective Patient reports: no new complaints, pain is less, flatus, no bowel movement, afebrile Narrative: Today is 3rd postoperative day after Ileocecal colectomy (resection of the dis tammy small bowel, cecum and appendix with primary anastomosis,) patient is progressively getting better, no new complaints. Pain is gradually getting less belly pain, she passed gas , but she does not have any bowel movement yet, she denied vomiting. Her vitals are stable; she is afebrile pulse 88 per minute regular, blood pressure 104/65 saturation 93% room air. We are planning to gradually advance diet as she tolerates. Objective Vital Signs - Last 8 Hours Temp Pulse Resp BP Pulse Ox 01/02/19 07:02 99 F 88 16 104/65 93 01/02/19 03:15 98.4 F 78 16 118/71 95 Intake and Output 01/01/19 01/02/19 01/02/19 23:59 07:59 15:59 Intake Total 260 / 1500 0 / 0 Output Total 800 / 800 Balance 260 / 1500 -800 / -800 Intake: IV Fluids 260 / 1260 Potassium Phosphate 44 MEQ In 0 260 / 260 .9 % Sodium Chloride 250 ML @ 40 mls/hr IVPB ONCE ONE Rx#: [id number] Oral 0 / 0 Output: Urine 800 / 800 Other: # Voids 1 Weight 81.6 kg Patient Weight 01/02/19 23:59 Weight 81.6 kg - General physical appearance well nourished, no distress, moderate pain - Eyes PERRL, normal ocular movement - ENT normal nares, normal mucosa - Neck Neck exam: no bruits, trachea midline, no lymphadectomy - Respiratory normal expansion, normal respiratory effort, clear to percussion, clear to auscultation - Cardiovascular Cardiovascular exam: Present: RRR, regular rhythm, no murmurs/rubs/gallops - Abdomen Abdomen: Present: bowel sounds present, soft, distended, tender. Absent: guarding, rebound, rigid - Incision Incision: Present: clean and dry, intact - Integumentary no rash - Neurologic CN 2-12 grossly intact, normal coordination, normal sensation - Musculoskeletal normal gait - Psychiatric oriented to time, oriented to person, oriented to place, speech is normal, memory intact - Labs 01/02/19 05:00 01/02/19 05:00 Diabetes panel 01/02/19 Range/Units 05:00 Sodium 139 (136-145) mEq/L Potassium 3.1 L (3.5-5.1) mEq/L Chloride 102 (98-107) mEq/L Carbon Dioxide 29 (23-29) mEq/L BUN 10 (6-20) mg/dL Creatinine 0.45 L (0.60-1.20) mg/dL Glucose 94 (70-105) mg/dL Calcium 8.5 L (8.6-10.3) mg/dL Calcium panel 01/02/19 Range/Units 05:00 Calcium 8.5 L (8.6-10.3) mg/dL Phosphorus 2.8 (2.7-4.5) mg/dL Pituitary panel 01/02/19 Range/Units 05:00 Sodium 139 (136-145) mEq/L Potassium 3.1 L (3.5-5.1) mEq/L Chloride 102 (98-107) mEq/L Carbon Dioxide 29 (23-29) mEq/L BUN 10 (6-20) mg/dL Creatinine 0.45 L (0.60-1.20) mg/dL Glucose 94 (70-105) mg/dL Calcium 8.5 L (8.6-10.3) mg/dL Adrenal panel 01/02/19 Range/Units 05:00 Sodium 139 (136-145) mEq/L Potassium 3.1 L (3.5-5.1) mEq/L Chloride 102 (98-107) mEq/L Carbon Dioxide 29 (23-29) mEq/L BUN 10 (6-20) mg/dL Creatinine 0.45 L (0.60-1.20) mg/dL Glucose 94 (70-105) mg/dL Calcium 8.5 L (8.6-10.3) mg/dL - Imaging Chest x-ray: report reviewed CT scan - abdomen: report reviewed Consult Discharge Plan - Plan Referrals: Vivian Borrego CNP [Primary Care Provider] - <Colin Lara - Last Filed: 01/02/19 15:10> Date of Encounter: 01/02/19 Objective Vital Signs - Last 8 Hours Temp Pulse Resp BP Pulse Ox 01/02/19 10:27 98.8 F 83 14 97/58 93 Intake and Output 01/01/19 01/02/19 01/02/19 23:59 07:59 15:59 Intake Total 260 / 1500 0 / 0 0 / 0 Output Total 800 / 800 Balance 260 / 1500 -800 / -800 0 / -800 Intake: IV Fluids 260 / 1260 Potassium Phosphate 44 MEQ In 0 260 / 260 .9 % Sodium Chloride 250 ML @ 40 mls/hr IVPB ONCE ONE Rx#: [id number] Oral 0 / 0 0 / 0 Output: Urine 800 / 800 Other: Meal Lunch # Voids 1 2 Weight 81.6 kg Patient Weight 01/02/19 23:59 Weight 81.6 kg - Labs 01/02/19 05:00 01/02/19 05:00 Diabetes panel 01/02/19 Range/Units 05:00 Sodium 139 (136-145) mEq/L Potassium 3.1 L (3.5-5.1) mEq/L Chloride 102 (98-107) mEq/L Carbon Dioxide 29 (23-29) mEq/L BUN 10 (6-20) mg/dL Creatinine 0.45 L (0.60-1.20) mg/dL Glucose 94 (70-105) mg/dL Calcium 8.5 L (8.6-10.3) mg/dL Calcium panel 01/02/19 Range/Units 05:00 Calcium 8.5 L (8.6-10.3) mg/dL Phosphorus 2.8 (2.7-4.5) mg/dL Pituitary panel 01/02/19 Range/Units 05:00 Sodium 139 (136-145) mEq/L Potassium 3.1 L (3.5-5.1) mEq/L Chloride 102 (98-107) mEq/L Carbon Dioxide 29 (23-29) mEq/L BUN 10 (6-20) mg/dL Creatinine 0.45 L (0.60-1.20) mg/dL Glucose 94 (70-105) mg/dL Calcium 8.5 L (8.6-10.3) mg/dL Adrenal panel 01/02/19 Range/Units 05:00 Sodium 139 (136-145) mEq/L Potassium 3.1 L (3.5-5.1) mEq/L Chloride 102 (98-107) mEq/L Carbon Dioxide 29 (23-29) mEq/L BUN 10 (6-20) mg/dL Creatinine 0.45 L (0.60-1.20) mg/dL Glucose 94 (70-105) mg/dL Calcium 8.5 L (8.6-10.3) mg/dL - Attending Attestation I have personally seen and examined the patient. I have reviewed pertinent labs, imaging, progress notes, including this one. I have discussed the plan in thorough detail with the resident and nurse practitioner. I agree with the above assessment and plan and wish to add the following... 43F s/p ileocectomy 2/2 ilealcolonic intussussception; now with soft abdomen, bowel function; cont CLD as there is still distension cont with pain control, IVF (SLIV when tolerating PO), IV abx reassess in AM; possible d.c this weekend
[2019-01-02] MEDS: Nitrofurantoin (BID) 100 MG CAPSULE PO SCH ×2 (08:56→17:49)
[2019-01-02] MEDS: Pantoprazole 40 MG VIAL IVP SCH (08:56)
--- NOTE | 2019-01-02 13:44 | Event Note ---
Date of Encounter: 01/02/19 Time of Encounter: 13:41 Patient reports abdominal distention and nausea. She denies vomiting. She reports she was told this a.m. she would be able to have a soft diet so in addition to her clear liquid she attempted a half a banana and this made her feel acutely worse. She states she has passed a "tiny bit" of flatus. Plan to keep patient on clear liquid diet, add Reglan IV Q6 hours scheduled, will check a KUB for baseline given her reported increased distention, and adjusted her pain medication so that she has scheduled Ofirmev and Toradol (in an effort to decrease narcotic pain use), continue PRN oxycodone for breakthrough pain. Add lidocaine patches, may cut patches in half in place on either side of the abdomen if desired. Utilize ice packs 20 minutes on 20 minutes off.
[2019-01-02] MEDS: Ketorolac 15 MG/ML VIAL IVP SCH ×3 (15:46→23:46)
[2019-01-02] MEDS: Metoclopramide 10 MG/2 ML VIAL IVP SCH ×3 (15:47→23:46)
[2019-01-02] MEDS: Acetaminophen IV 1,000 MG/100 ML INFUS..BTL IVPB SCH ×2 (18:14→23:46)
[2019-01-03 02:20] LABS: Basophils % 0.5 %; Eosinophils # 0.1 K/mcL (0.0-0.6); Eosinophils % 2.7 %; Hematocrit 30.6 % (35.3-44.9); Hemoglobin 10.2 g/dL (11.5-15.4); Lymphocytes # 1.4 K/mcL (0.6-4.6); Mean Corpuscular HGB Conc 33.3 g/dL (31.6-35.5); Mean Corpuscular Hemoglobin 31.1 pg (28.0-33.3); Mean Corpuscular Volume 93.3 fL (83.0-100.0); Monocytes # 0.5 K/mcL (0.0-1.3); Monocytes % 11.9 %; Neutrophils # 2.4 K/mcL (1.6-8.9); Platelet Count 207 K/mcL (140-400); Red Blood Count 3.28 M/mcL (3.82-4.97); Red Cell Distribution Width 12.8 % (11.5-14.5); Segmented Neutrophils % 52.9 %; White Blood Count 4.4 K/mcL (4.3-11.1)
[2019-01-03 02:40] LABS: Albumin 3.2 g/dL (3.5-5.7); BUN/Creatinine Ratio 25 (6-26); Blood Urea Nitrogen 10 mg/dL (6-20); Calcium 8.2 mg/dL (8.6-10.3); Carbon Dioxide 25 mEq/L (23-29); Chloride 103 mEq/L (98-107); Glucose 95 mg/dL (70-105); Magnesium 1.7 mg/dL (1.6-2.6); Osmolality,Calculated 283 (280-300); Phosphorous 3.8 mg/dL (2.7-4.5); Potassium 3.3 mEq/L (3.5-5.1); Sodium 137 mEq/L (136-145); eGFR For African Americans > 60 (> 60); eGFR For Non-African Americans > 60 (> 60)
[2019-01-03] MEDS: Metoclopramide 10 MG/2 ML VIAL IVP SCH ×4 (05:17→23:52)
[2019-01-03] MEDS: Ketorolac 15 MG/ML VIAL IVP SCH ×4 (05:17→23:52)
[2019-01-03] MEDS: Acetaminophen IV 1,000 MG/100 ML INFUS..BTL IVPB SCH ×4 (05:17→23:52)
[2019-01-03] MEDS: OXYCODONE Oral CONC 10 MG/0.5 ML ORAL.SYG SL PRN (05:29)
[2019-01-03] MEDS: Nitrofurantoin (BID) 100 MG CAPSULE PO SCH ×2 (09:05→17:35)
[2019-01-03] MEDS: Pantoprazole 40 MG VIAL IVP SCH (09:05)
--- NOTE | 2019-01-03 09:34 | AcuteCareSurgery Progress Note ---
<Jennifer Motley P - Last Filed: 01/03/19 09:41> Date of Encounter: 01/03/19 Time of Encounter: 08:30 - Assessment and Plan (1) Intussusception of intestine Current Visit: Yes Status: Acute * This patient was presented with severe abdominal pain , constipation, abdominal distension.The CT abdomen and pelvis showed:Ileocecal intussuscept ion measuring 5 cm in length, No bowel obstruction. * Today is 4th postoperative day after Ileocecal colectomy (resection of the distal small bowel, cecum and appendix with primary anastomosis 12/30/2018 * Patient is gradually getting better, pain is less, passing gas ,bowel sound +ve, but no bowel movement yet. * Post OP labs : WBC 4.4, hemoglobin 10.2, sodium 139, potassium 3.3, renal function normal * Xray KUB:Gaseous distended loops of bowel are seen in the left hemiabdomen measuring up to 3.4 cm. Findings are favored to represent a postoperative ileus. Plan : We started reglan yesterday to help with bowel movement and nausea. * Will gradually advance diet as she tolerated, start Liquid diet. * Potassium supplement , * Spirometry, pulmonary toileting * Activity as she tolerated * Monitor intake and output * Watch for wound site infection * Adequate pain management, * Trend labs Subjective Patient reports: no new complaints, feels better, pain is less, flatus, no bowel movement, afebrile Narrative: Today is 4th postoperative day after Ileocecal colectomy (resection of the distal small bowel, cecum and appendix with primary anastomosis,) patient is progressively getting better, no new complaints. Pain is gradually getting less belly pain, she passed gas , but she does not have any bowel movement yet, she denied vomiting. Her vitals are stable; she is afebrile pulse 66 per minute regular, blood pressure 93/54 saturation 98% room air. Xray KUB yesterday :Gaseous distended loops of bowel are seen in the left hemiabdomen measuring up to 3.4 cm. Findings are favored to represent a postoperative ileus. We are planning to gradually advance diet as she tolerates. Objective Vital Signs - Last 8 Hours Temp Pulse Resp BP Pulse Ox 01/03/19 06:47 97.8 F 66 18 93/54 98 01/03/19 04:53 98.3 F 65 14 94/53 90 Intake and Output 01/02/19 01/03/19 01/03/19 23:59 07:59 15:59 Intake Total 340 / 340 200 / 200 Balance 340 / -460 200 / 200 Intake: IV Fluids 100 / 100 200 / 200 Ofirmev 1,000 mg/100 ml 1,000 100 / 100 200 / 200 mg In 100 ml @ 400 mls/hr IVPB Q6HR [facility] Rx#:[id number] Oral 240 / 240 0 / 0 Other: Meal clears # Voids 1 2 - General physical appearance well nourished, no distress, moderate pain - Eyes PERRL, normal ocular movement - ENT normal nares, normal mucosa - Neck Neck exam: no bruits, trachea midline, no lymphadectomy, no venous distension - Respiratory normal expansion, normal respiratory effort, clear to percussion, clear to auscultation - Cardiovascular Cardiovascular exam: Present: RRR, regular rhythm, no murmurs/rubs/gallops - Abdomen Abdomen: Present: soft, distended, tender. Absent: organomegaly, guarding, rebound, rigid, peritoneal Abdominal Tenderness: diffusely - Incision Incision: Present: clean and dry, intact - Integumentary no rash - Neurologic CN 2-12 grossly intact, normal coordination, normal sensation - Musculoskeletal normal gait - Psychiatric oriented to time, oriented to person, oriented to place, speech is normal - Labs 01/03/19 01:39 01/03/19 01:39 Diabetes panel 01/03/19 Range/Units 01:39 Sodium 137 (136-145) mEq/L Potassium 3.3 L (3.5-5.1) mEq/L Chloride 103 (98-107) mEq/L Carbon Dioxide 25 (23-29) mEq/L BUN 10 (6-20) mg/dL Creatinine 0.40 L (0.60-1.20) mg/dL Glucose 95 (70-105) mg/dL Calcium 8.2 L (8.6-10.3) mg/dL Albumin 3.2 L (3.5-5.7) g/dL Calcium panel 01/03/19 Range/Units 01:39 Calcium 8.2 L (8.6-10.3) mg/dL Phosphorus 3.8 (2.7-4.5) mg/dL Albumin 3.2 L (3.5-5.7) g/dL Pituitary panel 01/03/19 Range/Units 01:39 Sodium 137 (136-145) mEq/L Potassium 3.3 L (3.5-5.1) mEq/L Chloride 103 (98-107) mEq/L Carbon Dioxide 25 (23-29) mEq/L BUN 10 (6-20) mg/dL Creatinine 0.40 L (0.60-1.20) mg/dL Glucose 95 (70-105) mg/dL Calcium 8.2 L (8.6-10.3) mg/dL Adrenal panel 01/03/19 Range/Units 01:39 Sodium 137 (136-145) mEq/L Potassium 3.3 L (3.5-5.1) mEq/L Chloride 103 (98-107) mEq/L Carbon Dioxide 25 (23-29) mEq/L BUN 10 (6-20) mg/dL Creatinine 0.40 L (0.60-1.20) mg/dL Glucose 95 (70-105) mg/dL Calcium 8.2 L (8.6-10.3) mg/dL Albumin 3.2 L (3.5-5.7) g/dL - Imaging Chest x-ray: report reviewed Abdominal x-ray: report reviewed CT scan - abdomen: report reviewed Consult Discharge Plan - Plan Referrals: Vivian Borrego CNP [Primary Care Provider] - <Colin Lara - Last Filed: 01/03/19 18:30> Date of Encounter: 01/03/19 Objective Vital Signs - Last 8 Hours Temp Pulse Resp BP Pulse Ox 01/03/19 15:08 98.7 F 68 17 97/57 92 01/03/19 11:08 98.3 F 76 18 107/63 95 Intake and Output 01/03/19 01/03/19 01/03/19 07:59 15:59 23:59 Intake Total 200 / 780 480 / 780 100 / 780 Balance 200 / 780 480 / 780 100 / 780 Intake: IV Fluids 200 / 300 100 / 300 Ofirmev 1,000 mg/100 ml 1,000 200 / 300 100 / 300 mg In 100 ml @ 400 mls/hr IVPB Q6HR [facility] Rx#:[id number] Oral 0 / 480 480 / 480 Other: Meal Breakfast # Voids 2 - Labs 01/03/19 01:39 01/03/19 01:39 Diabetes panel 01/03/19 Range/Units 01:39 Sodium 137 (136-145) mEq/L Potassium 3.3 L (3.5-5.1) mEq/L Chloride 103 (98-107) mEq/L Carbon Dioxide 25 (23-29) mEq/L BUN 10 (6-20) mg/dL Creatinine 0.40 L (0.60-1.20) mg/dL Glucose 95 (70-105) mg/dL Calcium 8.2 L (8.6-10.3) mg/dL Albumin 3.2 L (3.5-5.7) g/dL Calcium panel 01/03/19 Range/Units 01:39 Calcium 8.2 L (8.6-10.3) mg/dL Phosphorus 3.8 (2.7-4.5) mg/dL Albumin 3.2 L (3.5-5.7) g/dL Pituitary panel 01/03/19 Range/Units 01:39 Sodium 137 (136-145) mEq/L Potassium 3.3 L (3.5-5.1) mEq/L Chloride 103 (98-107) mEq/L Carbon Dioxide 25 (23-29) mEq/L BUN 10 (6-20) mg/dL Creatinine 0.40 L (0.60-1.20) mg/dL Glucose 95 (70-105) mg/dL Calcium 8.2 L (8.6-10.3) mg/dL Adrenal panel 01/03/19 Range/Units 01:39 Sodium 137 (136-145) mEq/L Potassium 3.3 L (3.5-5.1) mEq/L Chloride 103 (98-107) mEq/L Carbon Dioxide 25 (23-29) mEq/L BUN 10 (6-20) mg/dL Creatinine 0.40 L (0.60-1.20) mg/dL Glucose 95 (70-105) mg/dL Calcium 8.2 L (8.6-10.3) mg/dL Albumin 3.2 L (3.5-5.7) g/dL - Attending Attestation patient seen and examined. i have reviewed all labs, imaging adn notes. i have discussed the case in detail with the resident. i agree with the above assessment and plan... mild abdominal distension, but toleratijng diet does not wish for more to eat at present colace BID
[2019-01-04] MEDS: OXYCODONE Oral CONC 10 MG/0.5 ML ORAL.SYG SL PRN (03:41)
[2019-01-04] MEDS: Pantoprazole 40 MG VIAL IVP SCH (05:30)
[2019-01-04] MEDS: Metoclopramide 10 MG/2 ML VIAL IVP SCH ×3 (05:30→17:42)
[2019-01-04] MEDS: Acetaminophen IV 1,000 MG/100 ML INFUS..BTL IVPB SCH ×3 (05:30→17:42)
[2019-01-04] MEDS: Ketorolac 15 MG/ML VIAL IVP SCH ×3 (05:31→17:42)
[2019-01-04 05:33] LABS: Basophils % 0.2 %; Eosinophils # 0.1 K/mcL (0.0-0.6); Eosinophils % 2.6 %; Hematocrit 31.5 % (35.3-44.9); Hemoglobin 10.2 g/dL (11.5-15.4); Immature Granulocytes % 0.4 % (0-4); Lymphocytes # 1.3 K/mcL (0.6-4.6); Lymphocytes % 26.7 %; Mean Corpuscular HGB Conc 32.4 g/dL (31.6-35.5); Mean Corpuscular Hemoglobin 29.7 pg (28.0-33.3); Mean Corpuscular Volume 91.6 fL (83.0-100.0); Mean Platelet Volume 10.3 fL (9.4-12.4); Monocytes # 0.5 K/mcL (0.0-1.3); Platelet Count 257 K/mcL (140-400); Red Blood Count 3.44 M/mcL (3.82-4.97); Red Cell Distribution Width 12.7 % (11.5-14.5); Segmented Neutrophils % 60.1 %
[2019-01-04 06:19] LABS: BUN/Creatinine Ratio 23 (6-26); Blood Urea Nitrogen 9 mg/dL (6-20); Calcium 8.5 mg/dL (8.6-10.3); Carbon Dioxide 27 mEq/L (23-29); Chloride 103 mEq/L (98-107); Glucose 81 mg/dL (70-105); Magnesium 1.8 mg/dL (1.6-2.6); Osmolality,Calculated 286 (280-300); Phosphorous 4.2 mg/dL (2.7-4.5); Potassium 3.4 mEq/L (3.5-5.1); Sodium 139 mEq/L (136-145); eGFR For African Americans > 60 (> 60); eGFR For Non-African Americans > 60 (> 60)
[2019-01-04] MEDS: Nitrofurantoin (BID) 100 MG CAPSULE PO SCH ×2 (09:10→17:42)
--- NOTE | 2019-01-04 11:50 | AcuteCareSurgery Progress Note ---
<Jennifer Motley P - Last Filed: 01/04/19 22:27> Date of Encounter: 01/04/19 Time of Encounter: 10:45 - Assessment and Plan (1) Intussusception of intestine Status: Acute * This patient was presented with severe abdominal pain , constipation, abdominal distension.The CT abdomen and pelvis showed:Ileocecal intussusception measuring 5 cm in length, No bowel obstruction. * Today is 5th postoperative day after Ileocecal colectomy (resection of the distal small bowel, cecum and appendix with primary anastomosis 12/30/2018 * Patient is gradually getting better, pain is less, passing gas ,bowel sound +ve, but no bowel movement yet. * Post OP labs : WBC 5.4, hemoglobin 10.2, sodium 139, potassium 3.4, renal function normal * Xray KUB:Gaseous distended loops of bowel are seen in the left hemiabdomen measuring up to 3.4 cm. Findings are favored to represent a postoperative ileus. Plan : We started reglan , passed gas and has had bowel movement * Will gradually advance diet as she tolerated, full Liquid diet. * Increased activity as she tolerated * Potassium supplement , * Spirometry, pulmonary toileting * Monitor intake and output * Watch for wound site infection * Adequate pain management, * Trend labs Subjective Patient reports: no new complaints, feels better, pain is less, tolerating liquids well, flatus, bowel movement, afebrile Narrative: Today is 5th postoperative day after Ileocecal colectomy (resection of the distal small bowel, cecum and appendix with primary anastomosis,) patient is progressively getting better, no new complaints. Pain is gradually getting less belly pain, she passed gas , she has bowel movement she denied vomiting. Her vitals are stable; she is afebrile pulse 66 per minute regular, blood pressure 93/54 saturation 98% room air. Xray KUB yesterday :Gaseous distended loops of bowel are seen in the left hemiabdomen measuring up to 3.4 cm. Findings are favored to represent a postoperative ileus. We are planning to gradually advance full liquid diet as she tolerates and increased activities as tolerates Objective Vital Signs - Last 8 Hours Temp Pulse Resp BP Pulse Ox 01/04/19 10:28 97.9 F 71 15 117/69 91 01/04/19 07:02 97.9 F 60 18 95/59 92 Intake and Output 01/03/19 01/04/19 01/04/19 23:59 07:59 15:59 Intake Total 260 / 940 200 / 560 360 / 560 Output Total 0 / 0 Balance 260 / 940 200 / 560 360 / 560 Intake: IV Fluids 200 / 400 200 / 200 Ofirmev 1,000 mg/100 ml 1,000 200 / 400 200 / 200 mg In 100 ml @ 400 mls/hr IVPB Q6HR [facility] Rx#:[id number] Oral 60 / 540 0 / 360 360 / 360 Output: Urine 0 / 0 Other: Meal clears Stool Size Moderate Stool Consistency soft # Voids 1 1 # Bowel Movements 1 Weight 81.9 kg Patient Weight 01/04/19 23:59 Weight 81.9 kg - General physical appearance well nourished, no distress, moderate pain - Eyes PERRL, normal ocular movement - ENT normal mucosa - Neck Neck exam: no bruits, no lymphadectomy, no venous distension - Respiratory normal respiratory effort, clear to percussion, clear to auscultation - Abdomen Abdomen: Present: bowel sounds present, soft, tender. Absent: guarding, rebound, rigid - Incision Incision: Present: clean and dry, intact - Integumentary no rash - Neurologic CN 2-12 grossly intact, normal coordination, normal sensation - Musculoskeletal normal gait, normal posture - Psychiatric oriented to time, oriented to person, oriented to place - Labs 01/04/19 04:13 01/04/19 04:13 Diabetes panel 01/04/19 Range/Units 04:13 Sodium 139 (136-145) mEq/L Potassium 3.4 L (3.5-5.1) mEq/L Chloride 103 (98-107) mEq/L Carbon Dioxide 27 (23-29) mEq/L BUN 9 (6-20) mg/dL Creatinine 0.40 L (0.60-1.20) mg/dL Glucose 81 (70-105) mg/dL Calcium 8.5 L (8.6-10.3) mg/dL Calcium panel 01/04/19 Range/Units 04:13 Calcium 8.5 L (8.6-10.3) mg/dL Phosphorus 4.2 (2.7-4.5) mg/dL Pituitary panel 01/04/19 Range/Units 04:13 Sodium 139 (136-145) mEq/L Potassium 3.4 L (3.5-5.1) mEq/L Chloride 103 (98-107) mEq/L Carbon Dioxide 27 (23-29) mEq/L BUN 9 (6-20) mg/dL Creatinine 0.40 L (0.60-1.20) mg/dL Glucose 81 (70-105) mg/dL Calcium 8.5 L (8.6-10.3) mg/dL Adrenal panel 01/04/19 Range/Units 04:13 Sodium 139 (136-145) mEq/L Potassium 3.4 L (3.5-5.1) mEq/L Chloride 103 (98-107) mEq/L Carbon Dioxide 27 (23-29) mEq/L BUN 9 (6-20) mg/dL Creatinine 0.40 L (0.60-1.20) mg/dL Glucose 81 (70-105) mg/dL Calcium 8.5 L (8.6-10.3) mg/dL Consult Discharge Plan - Plan Instructions: Colectomy (DC) Additional Instructions: General Surgical Discharge Instructions 1. No pushing, pulling, or lifting greater than 15 lbs for 2 weeks. 2. You may shower beginning today, but no tub baths, soaking, or swimming for 2 weeks. 3. You may resume driving when you are off narcotics and are safe to react in a car. 4. Take ibuprofen every 8 hours for discomfort. If this does not relieve discomfort, you may take the as needed Percocet. Take narcotics as directed. Do not take more narcotics then directed and do not share your narcotics with any other person. Do not drink alcohol while on narcotics. 5. Take stool softeners (Colace) or a water based laxative (Miralax) while taking narcotics. You may hold for loose stools. 6. Report any fevers greater than 100.5F, increase abdominal discomfort, drainage that looks like pus, increased redness or pain at the surgical site, or any vomiting. 7. Report any pain in the calves, shortness of breath, or rapid heartbeat. 8. Follow-up in the office as directed. 9. If you were prescribed antibiotics, do not stop them without talking to your provider. Patient to take OTC medications for pain control. Take narcotic pain medication with Benadryl if needed of pain level >6/10. Referrals: Duane Navarro MD [Partnered Physician] - 01/20/19 8:30 am Prescriptions: Docusate [Colace] 100 mg PO BID PRN 14 Days #28 capsule PRN Reason: Constipation OxyCODONE/APAP 5/325 [Percocet 5/325 MG] 1 each PO Q6HR PRN 5 Days #20 tablet PRN Reason: Pain Ondansetron HCl [Zofran] 4 mg PO Q8HR PRN 5 Days #15 tab PRN Reason: Vomiting <Colin Lara - Last Filed: 01/05/19 16:12> Date of Encounter: 01/05/19 - Assessment and Plan (1) Intussusception of intestine Status: Acute Objective Vital Signs - Last 8 Hours Temp Pulse Resp BP Pulse Ox 01/05/19 10:16 98.6 F 74 15 134/67 93 Intake and Output 01/05/19 01/05/19 01/05/19 07:59 15:59 23:59 Intake Total 200 / 320 120 / 320 Output Total 0 / 0 Balance 200 / 320 120 / 320 Intake: IV Fluids 200 / 200 Ofirmev 1,000 mg/100 ml 1,000 200 / 200 mg In 100 ml @ 400 mls/hr IVPB Q6HR [facility] Rx#:[id number] Oral 120 / 120 Output: Urine 0 / 0 Other: Meal CLEARS # Voids 1 - Labs 01/05/19 02:34 01/05/19 02:34 Diabetes panel 01/05/19 Range/Units 02:34 Sodium 140 (136-145) mEq/L Potassium 3.4 L (3.5-5.1) mEq/L Chloride 104 (98-107) mEq/L Carbon Dioxide 26 (23-29) mEq/L BUN 8 (6-20) mg/dL Creatinine 0.40 L (0.60-1.20) mg/dL Glucose 87 (70-105) mg/dL Calcium 8.4 L (8.6-10.3) mg/dL Calcium panel 01/05/19 Range/Units 02:34 Calcium 8.4 L (8.6-10.3) mg/dL Phosphorus 3.4 (2.7-4.5) mg/dL Pituitary panel 01/05/19 Range/Units 02:34 Sodium 140 (136-145) mEq/L Potassium 3.4 L (3.5-5.1) mEq/L Chloride 104 (98-107) mEq/L Carbon Dioxide 26 (23-29) mEq/L BUN 8 (6-20) mg/dL Creatinine 0.40 L (0.60-1.20) mg/dL Glucose 87 (70-105) mg/dL Calcium 8.4 L (8.6-10.3) mg/dL Adrenal panel 01/05/19 Range/Units 02:34 Sodium 140 (136-145) mEq/L Potassium 3.4 L (3.5-5.1) mEq/L Chloride 104 (98-107) mEq/L Carbon Dioxide 26 (23-29) mEq/L BUN 8 (6-20) mg/dL Creatinine 0.40 L (0.60-1.20) mg/dL Glucose 87 (70-105) mg/dL Calcium 8.4 L (8.6-10.3) mg/dL - Attending Attestation please see ACS note placed by Dr. Lara on the same day for the A/P
--- NOTE | 2019-01-04 17:58 | AcuteCareSurgery Progress Note ---
Date of Encounter: 01/04/19 Time of Encounter: 17:55 - Assessment and Plan (1) Intussusception of intestine Current Visit: Yes Status: Acute 43F POD #5 s/p ex lap, ileocectomy 2/2 ileal-colonic intussussception; abd soft, mildly distended; ambulating, voiding; pain controlled; tolerating CLD okay for FLD, possible soft diet for dinner activity as tolerated plan for dc in next 24-48hrs Subjective Patient reports: no new complaints, feels better, still having pain, pain is less, tolerating liquids well, flatus, bowel movement, afebrile Objective Vital Signs - Last 8 Hours Temp Pulse Resp BP Pulse Ox 01/04/19 14:44 98.0 F 79 15 104/68 93 01/04/19 10:28 97.9 F 71 15 117/69 91 Intake and Output 01/04/19 01/04/19 01/04/19 07:59 15:59 23:59 Intake Total 200 / 720 420 / 720 100 / 720 Output Total 0 / 0 Balance 200 / 720 420 / 720 100 / 720 Intake: IV Fluids 200 / 300 100 / 300 Ofirmev 1,000 mg/100 ml 1,000 200 / 300 100 / 300 mg In 100 ml @ 400 mls/hr IVPB Q6HR [facility] Rx#:[id number] Oral 0 / 420 420 / 420 Output: Urine 0 / 0 Other: Meal Lunch Percent of Meal Consumed 80% # Voids 1 1 # Bowel Movements 1 Weight 81.9 kg Patient Weight 01/04/19 23:59 Weight 81.9 kg - General physical appearance no distress - Respiratory normal expansion, normal respiratory effort - Cardiovascular Cardiovascular exam: Present: RRR - Abdomen Abdomen: Present: soft, tender (appropriately tender; non peritoneal) - Incision Incision: Present: clean and dry, intact - Neurologic CN 2-12 grossly intact - Psychiatric oriented to time, oriented to person, oriented to place - Labs 01/04/19 04:13 01/04/19 04:13 Diabetes panel 01/04/19 Range/Units 04:13 Sodium 139 (136-145) mEq/L Potassium 3.4 L (3.5-5.1) mEq/L Chloride 103 (98-107) mEq/L Carbon Dioxide 27 (23-29) mEq/L BUN 9 (6-20) mg/dL Creatinine 0.40 L (0.60-1.20) mg/dL Glucose 81 (70-105) mg/dL Calcium 8.5 L (8.6-10.3) mg/dL Calcium panel 01/04/19 Range/Units 04:13 Calcium 8.5 L (8.6-10.3) mg/dL Phosphorus 4.2 (2.7-4.5) mg/dL Pituitary panel 01/04/19 Range/Units 04:13 Sodium 139 (136-145) mEq/L Potassium 3.4 L (3.5-5.1) mEq/L Chloride 103 (98-107) mEq/L Carbon Dioxide 27 (23-29) mEq/L BUN 9 (6-20) mg/dL Creatinine 0.40 L (0.60-1.20) mg/dL Glucose 81 (70-105) mg/dL Calcium 8.5 L (8.6-10.3) mg/dL Adrenal panel 01/04/19 Range/Units 04:13 Sodium 139 (136-145) mEq/L Potassium 3.4 L (3.5-5.1) mEq/L Chloride 103 (98-107) mEq/L Carbon Dioxide 27 (23-29) mEq/L BUN 9 (6-20) mg/dL Creatinine 0.40 L (0.60-1.20) mg/dL Glucose 81 (70-105) mg/dL Calcium 8.5 L (8.6-10.3) mg/dL Consult Discharge Plan - Plan Referrals: Vivian Borrego CNP [Primary Care Provider] -
[2019-01-05] MEDS: Ketorolac 15 MG/ML VIAL IVP SCH ×2 (00:31→06:17)
[2019-01-05] MEDS: Acetaminophen IV 1,000 MG/100 ML INFUS..BTL IVPB SCH ×2 (00:31→06:17)
[2019-01-05] MEDS: Metoclopramide 10 MG/2 ML VIAL IVP SCH ×2 (00:31→06:17)
[2019-01-05 03:22] LABS: Basophils % 0.3 %; Eosinophils # 0.2 K/mcL (0.0-0.6); Eosinophils % 2.5 %; Immature Granulocytes % 0.3 % (0-4); Lymphocytes # 1.6 K/mcL (0.6-4.6); Lymphocytes % 26.6 %; Mean Corpuscular HGB Conc 33.3 g/dL (31.6-35.5); Mean Corpuscular Hemoglobin 30.5 pg (28.0-33.3); Mean Corpuscular Volume 91.5 fL (83.0-100.0); Mean Platelet Volume 9.7 fL (9.4-12.4); Monocytes # 0.5 K/mcL (0.0-1.3); Monocytes % 8.8 %; Neutrophils # 3.7 K/mcL (1.6-8.9); Platelet Count 281 K/mcL (140-400); Red Blood Count 3.28 M/mcL (3.82-4.97); Red Cell Distribution Width 12.6 % (11.5-14.5); Segmented Neutrophils % 61.5 %; White Blood Count 6.1 K/mcL (4.3-11.1)
[2019-01-05 03:40] LABS: BUN/Creatinine Ratio 20 (6-26); Blood Urea Nitrogen 8 mg/dL (6-20); Calcium 8.4 mg/dL (8.6-10.3); Carbon Dioxide 26 mEq/L (23-29); Chloride 104 mEq/L (98-107); Glucose 87 mg/dL (70-105); Magnesium 1.8 mg/dL (1.6-2.6); Osmolality,Calculated 288 (280-300); Phosphorous 3.4 mg/dL (2.7-4.5); Potassium 3.4 mEq/L (3.5-5.1); Sodium 140 mEq/L (136-145); eGFR For African Americans > 60 (> 60); eGFR For Non-African Americans > 60 (> 60)
--- NOTE | 2019-01-05 08:09 | Discharge Summary ---
<Jennifer Motley P - Last Filed: 01/05/19 11:39> - NOTES TO OUTPATIENT PROVIDER Notes to Outpatient Provider: Follw up with in 2 weeks in Surgery out patient clinic with Dr Navarro. Please read the discharge instruction Date of Encounter: 01/05/19 Time of Encounter: 07:30 - Discharge Diagnosis (1) Intussusception of intestine Priority: Primary Status: Acute General Surgery Exam Initial Vital Signs Temp Pulse Resp BP Pulse Ox 98.6 F 86 16 141/82 95 12/30/18 02:52 12/30/18 02:52 12/30/18 02:52 12/30/18 02:52 12/30/18 02:52 - General physical appearance well developed, well nourished, no distress, no pain - Eyes PERRL, normal ocular movement - ENT normal mucosa, no congestion - Neck no masses, no bruits, trachea midline, no lymphadectomy, no venous distension - Respiratory normal expansion, normal respiratory effort, clear to percussion - Cardiovascular Cardiovascular exam: Present: RRR, regular rhythm, no murmurs/rubs/gallops - Abdomen Abdomen general surgery: Present: bowel sounds present, soft, non tender. Absent: distended, tender, guarding, rebound Hernia: Present: none - Incision Incision: Present: clean and dry, intact - Integumentary Integumentary general surgery: Present: warm and dry - Neurologic Present: CN 2-12 grossly intact, normal coordination, normal sensation - Musculoskeletal Present: normal gait - Psychiatric Psychiatric general surgery: Present: A&Ox3, oriented to person, oriented to place, oriented to time - Hospital Course Hospital course: Ms. Reed is a 43 year old female who was admitted for acute severe abdominal pain for last 3 weeks and more severe for last 1-[address] abdomen and pelvis showed Ileocecal intussusception measuring 5 cm in length. No bowel obstruction. Ileocecal colectomy (resection of the distal small bowel, cecum and appendix with primary anastomosis) was performed on 12/30/2018. Histopathology has been sent waiting for result .After surgery, she is recovering gradually, she has very minimal abdominal pain, no fever, has had a bowel movement and passing gas. There is no sign of infection at wound site. Her vitals are stable. She is on regular diet from today. We are planning to send home and she will follow-up in outpatient surgery within a week. - Time Spent with Patient Total time spent providing and/or coordinating discharge services: - Discharge Medications Prescriptions: New Docusate [Colace] 100 mg PO BID PRN 14 Days #28 capsule PRN Reason: Constipation OxyCODONE/APAP 5/325 [Percocet 5/325 MG] 1 each PO Q6HR PRN 5 Days #20 tablet PRN Reason: Pain Ondansetron HCl [Zofran] 4 mg PO Q8HR PRN 5 Days #15 tab PRN Reason: Vomiting Continued Albuterol Sulfate [Albuterol Inhaler] 2 puff IH Q4HR PRN PRN Reason: Shortness Of Breath Magnesium Oxide [Magnesium] 400 mg PO BID ALPRAZolam [Xanax 0.25 MG Tablet] 0.5 mg PO BID PRN PRN Reason: Anxiety Montelukast [Singulair] 10 mg PO DAILY #30 tablet Polyethylene Glycol 3350 [MiraLAX] 17 gm PO DAILY PRN PRN Reason: Constipation Glycopyrrolate/Formoterol Fum [Bevespi Aerosphere Inhaler] 2 puff IH BID Fluticasone Propionate Nasal [Flonase] 2 spr NS DAILY PRN PRN Reason: Allergy Symptoms Ergocalciferol (VITAMIN D2) [Vitamin D2] 50,000 unit PO OCAMPO Home Medications: ALPRAZolam [Xanax 0.25 MG Tablet] 0.5 mg PO BID PRN 08/21/18 [History] Albuterol Sulfate [Albuterol Inhaler] 2 puff IH Q4HR PRN 08/21/18 [History] Magnesium Oxide [Magnesium] 400 mg PO BID 08/21/18 [History] Montelukast [Singulair] 10 mg PO DAILY #30 tablet 08/21/18 [Rx] Ergocalciferol (VITAMIN D2) [Vitamin D2] 50,000 unit PO OCAMPO 12/30/18 [History] Fluticasone Propionate Nasal [Flonase] 2 spr NS DAILY PRN 12/30/18 [History] Glycopyrrolate/Formoterol Fum [Bevespi Aerosphere Inhaler] 2 puff IH BID 12/30/18 [History] Polyethylene Glycol 3350 [MiraLAX] 17 gm PO DAILY PRN 12/30/18 [History] Docusate [Colace] 100 mg PO BID PRN 14 Days #28 capsule 01/05/19 [Rx] Ondansetron HCl [Zofran] 4 mg PO Q8HR PRN 5 Days #15 tab 01/05/19 [Rx] OxyCODONE/APAP 5/325 [Percocet 5/325 MG] 1 each PO Q6HR PRN 5 Days #20 tablet 01/05/19 [Rx] Allergies/Adverse Reactions: Allergy/AdvReac Type Severity Reaction Status Date / Time hydromorphone [From Dilaudid] Allergy Itching Verified 12/30/18 04:34 oxycodone [Oxycodone] Allergy Hives Verified 08/21/18 14:14 Date of admission: 12/30/18 09:48 Primary care physician: Vivian Borrego CNP Consults: 12/30/18 03:05 Consult to [employer] [CONS] Routine Reason for SW Consult: financial planning 01/01/19 09:14 Consult to Respiratory Therapy [CONS] Stat Reason for Consult: Acapella, aggressive pulmonary toileting (smoker and productive cough), duonebs treatment scheduled Time Notified: 09:15 Call Completed: No Discharging clinician: Duane Navarro Anticipated date of discharge: 01/05/19 Labs on day of discharge: Labs from last 24 hours 01/05/19 01/05/19 02:34 02:34 WBC 6.1 RBC 3.28 L Hgb 10.0 L Hct 30.0 L MCV 91.5 MCH 30.5 MCHC 33.3 RDW 12.6 Plt Count 281 MPV 9.7 Immature Gran % 0.3 Seg Neutrophils % 61.5 Lymphocytes % 26.6 Monocytes % 8.8 Eosinophils % 2.5 Basophils % 0.3 Neutrophils # 3.7 Lymphocytes # 1.6 Monocytes # 0.5 Eosinophils # 0.2 Basophils # 0.0 Sodium 140 Potassium 3.4 L Chloride 104 Carbon Dioxide 26 BUN 8 Creatinine 0.40 L Est GFR ( Amer) > 60 Est GFR (Non-Af Amer) > 60 BUN/Creatinine Ratio 20 Glucose 87 Calculated Osmolality 288 Calcium 8.4 L Phosphorus 3.4 Magnesium 1.8 - Impressions ITS Impressions Chest X-Ray 01/01/19 09:18 IMPRESSION: No acute pulmonary process. D/ / Ba Mckinnon MD / Ba Mckinnon MD Interpreting Provider: Ba Mckinnon MD X-Ray 01/02/19 13:40 IMPRESSION: 1. Gaseous distended loops of bowel are seen in the left hemiabdomen measuring up to 3.4 cm. Findings are favored to represent a postoperative ileus. Recommend continued attention on follow-up. D/ /02/2019 14:21:18 Kiesha Gonzales MD / rocael Interpreting Provider: Kiesha Gonzales MD - Patient Status Disposition: Home, Self-Care Condition: Good Functional capacity at discharge: independent ambulation Overall status at discharge: patient is progressing back to baseline - Discharge Instructions Instructions: Colectomy (DC) Follow Up With: Duane Navarro MD [Partnered Physician] - 01/20/19 8:30 am Additional Instructions: General Surgical Discharge Instructions 1. No pushing, pulling, or lifting greater than 15 lbs for 2 weeks. 2. You may shower beginning today, but no tub baths, soaking, or swimming for 2 weeks. 3. You may resume driving when you are off narcotics and are safe to react in a car. 4. Take ibuprofen every 8 hours for discomfort. If this does not relieve discomfort, you may take the as needed Percocet. Take narcotics as directed. Do not take more narcotics then directed and do not share your narcotics with any other person. Do not drink alcohol while on narcotics. 5. Take stool softeners (Colace) or a water based laxative (Miralax) while taking narcotics. You may hold for loose stools. 6. Report any fevers greater than 100.5F, increase abdominal discomfort, drain age that looks like pus, increased redness or pain at the surgical site, or any vomiting. 7. Report any pain in the calves, shortness of breath, or rapid heartbeat. 8. Follow-up in the office as directed. 9. If you were prescribed antibiotics, do not stop them without talking to your provider. Patient to take OTC medications for pain control. Take narcotic pain medication with Benadryl if needed of pain level >6/10. <Duane Navarro - Last Filed: 01/05/19 13:29> Date of Encounter: 01/05/19 General Surgery Exam Initial Vital Signs Temp Pulse Resp BP Pulse Ox 98.6 F 86 16 141/82 95 12/30/18 02:52 12/30/18 02:52 12/30/18 02:52 12/30/18 02:52 12/30/18 02:52 - Hospital Course Hospital course: Ms. Reed is a 43 year old female - Time Spent with Patient Total time spent providing and/or coordinating discharge services: Date of admission: 12/30/18 09:48 Primary care physician: Vivian Borrego CNP Consults: 12/30/18 03:05 Consult to [employer] [CONS] Routine Reason for SW Consult: financial planning 01/01/19 09:14 Consult to Respiratory Therapy [CONS] Stat Reason for Consult: Acapella, aggressive pulmonary toileting (smoker and productive cough), duonebs treatment scheduled Time Notified: 09:15 Call Completed: No Labs on day of discharge: Labs from last 24 hours 01/05/19 01/05/19 02:34 02:34 WBC 6.1 RBC 3.28 L Hgb 10.0 L Hct 30.0 L MCV 91.5 MCH 30.5 MCHC 33.3 RDW 12.6 Plt Count 281 MPV 9.7 Immature Gran % 0.3 Seg Neutrophils % 61.5 Lymphocytes % 26.6 Monocytes % 8.8 Eosinophils % 2.5 Basophils % 0.3 Neutrophils # 3.7 Lymphocytes # 1.6 Monocytes # 0.5 Eosinophils # 0.2 Basophils # 0.0 Sodium 140 Potassium 3.4 L Chloride 104 Carbon Dioxide 26 BUN 8 Creatinine 0.40 L Est GFR ( Amer) > 60 Est GFR (Non-Af Amer) > 60 BUN/Creatinine Ratio 20 Glucose 87 Calculated Osmolality 288 Calcium 8.4 L Phosphorus 3.4 Magnesium 1.8 - Impressions ITS Impressions Chest X-Ray 01/01/19 09:18 IMPRESSION: No acute pulmonary process. D/ / Ba Mckinnon MD / Ba Mckinnon MD Interpreting Provider: Ba Mckinnon MD X-Ray 01/02/19 13:40 IMPRESSION: 1. Gaseous distended loops of bowel are seen in the left hemiabdomen measuring up to 3.4 cm. Findings are favored to represent a postoperative ileus. Recommend continued attention on follow-up. D/ /02/2019 14:21:18 Kiesha Gonzales MD / rocael Interpreting Provider: Kiesha Gonzales MD - Attending Attestation I examined this patient and my medical decision-making was reviewed with the Resident Physician. I agree with the documented findings, disposition and treatment plan as described except to the extent set forth below. The patient is seen and evaluated on morning rounds with the acute care surgery team. She is having regular bowel movements. She is tolerating regular diet. We will plan discharge later today. She will follow up as an outpatient in the acute care surgery clinic Duane Navarro MD FACS
[2019-01-05] MEDS: Pantoprazole 40 MG VIAL IVP SCH (09:28)
[2019-01-05 10:17] VITALS: BP 134/67
== END 2019-01-05 13:20 | disposition home or self-care (01) | DRG 330 ==
LOC: 3NENU → 3ANU 16:11
PROVIDERS: ADMIT Surgery; ATTEND Surgery